=== PATIENT | female | born 1960 | race Caucasian/White ===

== ENCOUNTER 2021-09-10 05:18 | Day surgery (SDC) | payer OTHER ==
[2021-09-08 07:56] VITALS: BMI 24.2
[2021-09-10 11:06] VITALS: TEMP 98.2
[2021-09-10 11:37] VITALS: BP 105/70; PULSE 70
== END 2021-09-10 11:58 | disposition home or self-care (01) ==
LOC: JASU-ENDO 05:18
PROVIDERS: ATTEND Internal Medicine Gastroenterology
PROC: 0DJD8ZZ Inspection of Lower Intestinal Tract, Via Natural or Artificial Opening Endoscopic (ICD-10-PCS; principal; 2021-09-10 10:30)
DX: Z12.11 Encounter for screening for malignant neoplasm of colon (principal); Z83.71 Family history of colonic polyps; K57.30 Diverticulosis of large intestine without perforation or abscess without bleeding; K64.8 Other hemorrhoids